=== PATIENT | female | born 1990 | race Caucasian/White ===

== ENCOUNTER 2020-07-16 | Outpatient (CLI) | payer MEDICAID | END 2020-07-16 07:47 | disposition left against medical advice (07) ==

== ENCOUNTER 2020-08-16 00:38 | Outpatient (CLI) | payer MEDICAID | END 2020-08-16 00:39 | disposition left against medical advice (07) | LOC: EMS 00:38 | DX: R55 Syncope and collapse (principal) ==

== ENCOUNTER 2020-11-27 15:37 | Outpatient (CLI) | payer MEDICAID | END 2020-11-27 15:38 | disposition EMS.NT | LOC: EMS 15:37 | DX: S89.91XA Unspecified injury of right lower leg, initial encounter (principal); S09.92XA Unspecified injury of nose, initial encounter; R51.9 Headache, unspecified; Y04.2XXA Assault by strike against or bumped into by another person, initial encounter ==